=== PATIENT | male | born 2000 | race Two or more races ===

== ENCOUNTER 2024-01-02 13:04 | Emergency (ER) | payer OTHER ==
[~2024-01-02] VITALS: Ht 175.3 cm; Wt 90.7 kg
[2024-01-02] MEDS ORDERED: GUAIFENESIN 200 MG/10 ML BLIST.PACK PO ONE (14:00)
[2024-01-02] MEDS ORDERED: CEFTRIAXONE SODIUM 1,000 MG VIAL IV ONE (14:00)
[2024-01-02] MEDS ORDERED: BENZONATATE 100 MG CAPSULE PO ONE (14:00)
[2024-01-02] MEDS ORDERED: 0.9 % SODIUM CHLORIDE 500 ML IV ONE (14:00)
[2024-01-02] MEDS ORDERED: METHYLPREDNISOLONE SOD SUCC 40 MG VIAL IM ONE (14:00)
[2024-01-02] MEDS ORDERED: KETOROLAC TROMETHAMINE 30 MG VIAL IM ONE (14:00)
[2024-01-02 14:34] LABS: HEMATOCRIT 39.7 % (39.0-48.0); HEMOGLOBIN 13.8 g/dL (13-16.00); MEAN CELL VOLUME 84.3 fL (80.0-100.00); MEAN CORPUSCULAR HEMOGLOBIN 29.3 pg (27.00-32.0); MEAN CORPUSCULAR HGB CONC 34.7 g/dl (32.0-36.0); PLATELET COUNT 245 K/uL (150-450); RED BLOOD COUNT 4.71 M/uL (4.00-6.00); RED CELL DISTRIBUTION WIDTH 13.5 % (11.5-14.5)
[2024-01-02] MEDS ORDERED: BENZONATATE200 M1 PO (14:48)
[2024-01-02] MEDS ORDERED: MEDROLPACK PO (14:48)
== END 2024-01-02 15:01 | disposition home or self-care (01) ==
LOC: ER 13:06
PROVIDERS: General Practice
DX: J02.9 Acute pharyngitis, unspecified (principal); Z20.822 Contact with and (suspected) exposure to COVID-19

== ENCOUNTER 2024-09-16 16:33 | Emergency (ER) | payer OTHER ==
[~2024-09-16] VITALS: Ht 175.3 cm; Wt 86.2 kg
[~2024-09-16 16:33] MED LIST: BENZONATATE200 M1 PO; MEDROLPACK PO
[2024-09-16 17:57] LABS: BASO % 1.2 % (0.1-1.2); EOS # 0.19 (0.04-0.54); EOS % 3.9 % (0.7-7.0); LYMPH # 2.47 (1.18-3.74); LYMPH % 50.1 % (19.3-53.1); MEAN PLATELET VOLUME 10.30 fl (9.4-12.4); MONO # 0.52 (0.24-0.82); MONO % 10.5 % (4.7-12.5); NEUT # 1.68 (1.56-6.13); NEUT % 34.1 % (34.0-71.1); RED CELL DISTRIBUTION WIDTH 12.1 % (11.6-14.4)
[2024-09-16 18:15] LABS: BUN CREA RATIO 11.0 (7.0-25.0); CREATININE SERUM 0.82 mg/dL (0.70-1.30); GFR 114.47; GLUCOSE FASTING 97.0 mg/dL (65-100); OSMOLALITY SERUM 278.0 MOSM/KG (275-295)
== END 2024-09-16 18:57 | disposition home or self-care (01) ==
LOC: ER 16:33
PROVIDERS: General Practice
DX: R42 Dizziness and giddiness (principal)